=== PATIENT | female | born 1940 | race Caucasian/White ===

== ENCOUNTER → 2019-02-17 | Outpatient (CLI) | payer MEDICARE, OTHER ==
[2019-02-17 10:53] LABS: ABSOLUTE EOSINOPHILS # (AUTO) 0.2 10^3/uL (0.0-0.6); ABSOLUTE LYMPHOCYTES (AUTO) 1.6 10^3/uL (0.5-4.7); ABSOLUTE MONOCYTES (AUTO) 0.4 10^3/uL (0.1-1.4); ABSOLUTE NEUT (AUTO) 4.3 10^3/uL (1.7-8.2); BASOPHILS % (AUTO) 0.6 % (0-2); EOSINOPHILS % (AUTO) 2.6 % (0-6); HEMATOCRIT 36.8 % (36.0-47.0); LYMPHOCYTES % (AUTO) 25.3 % (13-45); MEAN CORPUSCULAR HEMOGLOBIN 28.9 pg (27.0-33.4); MEAN CORPUSCULAR HGB CONC 32.7 g/dL (32.0-36.0); MEAN CORPUSCULAR VOLUME 88 fl (80-97); MONOCYTES % (AUTO) 5.5 % (3-13); PLATELET COUNT 142 10^3/uL (150-450); RED BLOOD COUNT 4.16 10^6/uL (3.72-5.28); RED CELL DISTRIBUTION WIDTH 14.8 % (11.5-14.0); TOTAL CELLS COUNTED % (AUTO) 100 %; WHITE BLOOD COUNT 6.5 10^3/uL (4.0-10.5)
[2019-02-17 11:23] LABS: ALANINE AMINOTRANSFERASE 27 U/L (9-52); ALBUMIN 3.9 g/dL (3.5-5.0); ALKALINE PHOSPHATASE 98 U/L (38-126); ANION GAP 6 (5-19); ASPARTATE AMINO TRANSFERASE 23 U/L (14-36); BILIRUBIN,DIRECT 0.2 mg/dL (0.0-0.4); BILIRUBIN,TOTAL 0.6 mg/dL (0.2-1.3); BLOOD UREA NITROGEN 23 mg/dL (7-20); C-REACTIVE PROTEIN 7.7 mg/L (<10.0); CALCIUM 9.2 mg/dL (8.4-10.2); CARBON DIOXIDE 32 mmol/L (22-30); CHLORIDE 101 mmol/L (98-107); GLUCOSE 97 mg/dL (75-110); SODIUM 139.2 mmol/L (137-145); TOTAL PROTEIN 6.9 g/dL (6.3-8.2)
[2019-02-17 11:43] LABS: ERYTHROCYTE SEDIMENTATION RATE 22 mm/hr (0-30)
--- NOTE | 2019-02-17 14:25 | RADIOLOGY REPORT (SQ) ---
EXAM DESCRIPTION: ANKLE RIGHT COMPLETE COMPLETED DATE/TIME: 02/17/2019 10:48 am REASON FOR STUDY: NON-PRS CHRONIC ULCER OF RIGHT ANKLE W FAT LAYER EXPOSED L97.312 NON-PRS CHRONIC ULCER OF RIGHT ANKLE W FAT LAYER EXP COMPARISON: None. NUMBER OF VIEWS: Three views. TECHNIQUE: AP, lateral, and oblique radiographic images acquired of the right ankle. LIMITATIONS: None. FINDINGS: MINERALIZATION: Decreased. BONES: No acute fracture dislocation. Dysmorphic appearance of the distal fibula possibly related to remote injury. Mild degenerative changes about the ankle. No osseous erosion or sclerosis to sugge st osteomyelitis. JOINTS: No effusions. SOFT TISSUES: Vascular calcifications. Soft tissue swelling about the medial ankle. OTHER: No other significant finding. IMPRESSION: Soft tissue swelling about the medial ankle without evidence of acute bony abnormality. No definitive findings to suggest osteomyelitis. TECHNICAL DOCUMENTATION: JOB ID: [id number] [employer]- All Rights Reserved Reading location - IP/workstation name: [email or web address]
== END ==
LOC: OD 10:24
PROVIDERS: ATTEND Nurse Practitioner Family
DX: L97.312 Non-pressure chronic ulcer of right ankle with fat layer exposed (principal); M79.89 Other specified soft tissue disorders
CPT/HCPCS: 36415; 80053; 85025; 85652; 86140

== ENCOUNTER → 2019-02-22 | Outpatient (CLI) | payer MEDICARE, OTHER ==
--- NOTE | 2019-02-22 12:16 | XCELERA REPORT ---
[address] [address] Lower Extremity Venous Evaluation Procedure: A bilateral duplex scan of the lower extremity veins was performed. The evaluation included responses to compression and other maneuvers with patient in the supine and standing positions to assess venous insufficiency. Right Sided Venous Evaluation Deep venous system evaluatiion shows patent veins with no obstruction or significant reflux identified. Sapheno Femoral junction: no reflux. Femoral vein reflux: no reflux. Greater Saphenous vein, Proximal thigh: reflux: no reflux. Greater Saphenous vein, Distal thigh: reflux: no reflux. Greater Saphenous vein, Proximal below knee: reflux: no reflux. No significant Perforators identified. Left Sided Venous Evaluation Deep venous system evaluatiion shows patent veins with no obstruction or significant reflux identified. Sapheno Femoral junction: no reflux. Femoral vein reflux: no reflux. Greater Saphenous vein, Proximal thigh: reflux: no reflux. Greater Saphenous vein, Distal thigh: reflux: no reflux. Greater Saphenous vein, Proximal below knee: reflux: no reflux. No significant Perforators identified. Interpretation Summary No duplex evidence of DVT or obstruction in the bilateral lower extremities. No deep or superficial reflux identified. Name: RODNEY HART David Age: 78 yrs Gender: Female : 1940 Patient Status: Outpatient Patient Location: Study Date: 02/22/2019 10:37 AM Reason For Study: ULCER OF RIGHT ANKLE Ordering Physician: ADY ALMANZAR Performed By: Shantell Brooks : ADY ALMANZAR > Chucky Hernandez
--- NOTE | 2019-02-22 12:24 | XCELERA REPORT ---
[address] [address] Lower Extremity Arterial Evaluation Name: RODNEY HART Age: 78 yrs Gender: Female : 1940 Patient Status: Outpatient Patient Location: Study Date: 02/22/2019 10:17 AM Procedure: A color flow and duplex scan of the lower extremity arteries was performed bilaterally with velocity and waveform anaylsis. Ankle brachial indicies performed. Reason For Study: ULCER OF RIGHT ANKLE Ordering Physician: ADY ALMANZAR Performed By: Shantell Brooks Measurements and Calculations Right Left VP HR DIVERSITY PSV 151.0 165.0 cm/sec Prox PFA PSV 75.0 71.1 cm/sec Prox SFA PSV 114.1 136.9 cm/sec Mid SFA PSV -134.0 132.7 cm/sec Dist SFA PSV -129.2 -127.8cm/sec Dist Pop A PSV -111.0 81.0 cm/sec Mid MELANIE PSV 140.6 93.6 cm/sec Mid M[employer] ST[employer] REPA[employer]ER PSV 156.4 76.1 cm/sec Joni Pedis PSV 86.4 129.2 cm/sec Right Side Arterial Evaluation Normal velocity and triphasic waveforms noted from the Common Femoral artery to the infrageniculate vessels . Ankle Brachial index 1.2. Left Side Arterial Evaluation Normal velocity and triphasic waveforms noted from the Common Femoral artery to the infrageniculate vessels . Ankle Brachial index 1.1. Interpretation Summary No hemodynamically significant lesions in the bilateral lower extremities, on duplex imaging, at rest. BAM's are normal, suggesting no significant arterial compromise. : ADY ALMANZAR > Chucky Hernandez
== END ==
LOC: SP 10:02
PROVIDERS: ATTEND Nurse Practitioner Family
DX: L97.312 Non-pressure chronic ulcer of right ankle with fat layer exposed (principal)
CPT/HCPCS: 93925; 93970

== ENCOUNTER 2019-10-12 18:29 | Emergency (ER) | payer MEDICARE, OTHER ==
--- NOTE | 2019-10-12 18:47 | ER Document Report ---
ED Medical Screen (RME) - General Chief Complaint: Fall Injury Stated Complaint: FALL/HEAD INJURY,LACERATION Time Seen by Provider: 10/12/19 18:42 Primary Care Provider: CHANTELL BERGERON III, MD [Primary Care Provider] - Follow up as needed Notes: 79-year-old female presents with head injury. Per daughter patient just stood up and fell forward. Daughter states she takes medication for dizziness and did not take her lunchtime dose. Patient denies passing out or having dizziness/chest pain/dyspnea prior to falling. Patient has large hematoma to her forehead and small abrasion to the left eyebrow. Patient also has hematoma to her right medial hand. Radial pulse 2+. I have greeted and performed a rapid initial assessment of this patient. A comprehensive ED assessment and evaluation of the patient, analysis of test results and completion of the medical decision making process with be conducted by additional ED providers. TRAVEL OUTSIDE OF THE [place] IN LAST 30 DAYS: No - Related Data Allergies/Adverse Reactions: No Known Allergies Allergy (Verified 10/12/19 18:42) Physical Exam - Vital signs Vitals: Temp Pulse Resp BP Pulse Ox 97.8 F 84 18 153/99 H 98 10/12/19 18:35 10/12/19 18:35 10/12/19 18:35 10/12/19 18:35 10/12/19 18:35 Course - Vital Signs Vital signs: Temp Pulse Resp BP Pulse Ox 97.8 F 84 18 153/99 H 98 10/12/19 18:35 10/12/19 18:35 10/12/19 18:35 10/12/19 18:35 10/12/19 18:35 Doctor's Discharge - Discharge Referrals: CHANTELL BERGERON III, MD [Primary Care Provider] - Follow up as needed
--- NOTE | 2019-10-12 19:07 | RADIOLOGY REPORT (SQ) ---
EXAM DESCRIPTION: HAND RIGHT 3 VIEWS COMPLETED DATE/TIME: 10/12/2019 6:56 pm REASON FOR STUDY: right hand injury/hematoma, fall COMPARISON: None. NUMBER OF VIEWS: Three views right hand LIMITATIONS: None. FINDINGS: Osteopenic. IP joint osteoarthritis, most notable on the DIP joints of the ring and littl e fingers. No fracture or bone lesion or subluxation or dislocation evident. OTHER: Carpal DJD without gross malalignment. IMPRESSION: Osteopenia and osteoarthritis. No fracture evident. TECHNICAL DOCUMENTATION: JOB ID: [id number] Reading location - IP/workstation name: [email or web address]
--- NOTE | 2019-10-12 19:15 | RADIOLOGY REPORT (SQ) ---
EXAM DESCRIPTION: CT HEAD WITHOUT COMPLETED DATE/TIME: 10/12/2019 7:03 pm REASON FOR STUDY: fall, head injury COMPARISON: 01/13/2014 TECHNIQUE: Axial images acquired through the brain without intravenous contrast. Images reviewed wi th bone, brain and subdural windows. Additional sagittal and coronal reconstructions were generated. Images stored on PACS. All CT scanners at this facility use dose modulation, iterative reconstruction, and/or weight based d osing when appropriate to reduce radiation dose to as low as reasonably achievable (ALARA). [facility]: Dose Right [facility]: CareDose [facility]: Dose Right [facility]: Teradose 4D [facility]: Smart A-Gas RADIATION DOSE: CT Rad equipment meets quality standard of care and radiation dose reduction techniq ues were employed. CTDIvol: 48.5 mGy. DLP: 879 mGy-cm. mGy. LIMITATIONS: None. FINDINGS: VENTRICLES: Normal size and contour. CEREBRUM: No masses. No hemorrhage. No midline shift. No evidence for acute infarction. Normal gra y/white matter differentiation. No areas of low density in the white matter. CEREBELLUM: No masses. No hemorrhage. No alteration of density. No evidence for acute infarction. EXTRAAXIAL SPACES: No fluid collections. No masses. ORBITS AND GLOBE: No intra- or extraconal masses. Normal contour of globe without masses. CALVARIUM: No fracture. PARANASAL SINUSES: No fluid or mucosal thickening. SOFT TISSUES: Right frontal scalp hematoma. OTHER: No other significant finding. IMPRESSION: Right frontal scalp hematoma with no acute intracranial imaging finding. EVIDENCE OF ACUTE STROKE: NO. COMMENT: Quality ID # [id number]: Final reports with documentation of one or more dose reduction techniques (e.g., Automated exposure control, adjustment of the mA and/or kV according to patient size, use of iterative reconstruction technique) TECHNICAL DOCUMENTATION: JOB ID: [id number] 2010 [employer]- All Rights Reserved Reading location - IP/workstation name: [email or web address]
--- NOTE | 2019-10-12 19:23 | RADIOLOGY REPORT (SQ) ---
EXAM DESCRIPTION: CT CERVICAL SPINE WITHOUT COMPLETED DATE/TIME: 10/12/2019 7:03 pm REASON FOR STUDY: fall, head injury COMPARISON: None. TECHNIQUE: Axial images acquired through the cervical spine without intravenous contrast. Images re viewed with lung, soft tissue and bone windows. Reconstructed coronal and sagittal MPR images review ed. Images stored on PACS. All CT scanners at this facility use dose modulation, iterative reconstruction, and/or weight based d osing when appropriate to reduce radiation dose to as low as reasonably achievable (ALARA). [facility]: Dose Right [facility]: CareDose [facility]: Dose Right [facility]: Teradose 4D [facility]: Smart [employer] RADIATION DOSE: CT Rad equipment meets quality standard of care and radiation dose reduction techniq ues were employed. CTDIvol: 21.2 mGy. DLP: 497 mGy-cm. mGy. LIMITATIONS: None. FINDINGS: ALIGNMENT: Minimal anterolisthesis of C4 on C5. MINERALIZATION: Normal. VERTEBRAL BODIES: No fractures or dislocation. DISCS: Slight disc narrowing at C5-6. FACETS, LATERAL MASSES, POSTERIOR ELEMENTS: Hypertrophic facet changes bilaterally, right more than l eft. HARDWARE: None in the spine. VISUALIZED RIBS: No fractures. LUNG APICES AND SOFT TISSUES: No significant or acute findings. OTHER: No other significant finding. IMPRESSION: Mild degenerative disc disease. Minimal anterolisthesis of C4 on C5. Facet arthropathy . TECHNICAL DOCUMENTATION: JOB ID: [id number] Quality ID # [id number]: Final reports with documentation of one or more dose reduction techniques (e.g., Au tomated exposure control, adjustment of the mA and/or kV according to patient size, use of iterative reconstruction technique) 2010 [employer]- All Rights Reserved Reading location - IP/workstation name: [email or web address]
[2019-10-12] MEDS ORDERED: DIPH/PERTUSS(ACELL)/TETANUS VAC/PF 0.5 ML SYR (>=10YO) IM ONE (21:11)
[2019-10-12] MEDS ORDERED: LIDOCAINE 1% INJ-PF (10 MG/ML) 30 ML SDV INJ ONE (21:11)
--- NOTE | 2019-10-12 21:16 | ER Document Report ---
ED General - General Chief Complaint: Fall Stated Complaint: FALL/HEAD INJURY,LACERATION Time Seen by Provider: 10/12/19 18:42 Primary Care Provider: CHANTELL BERGERON III, MD [Primary Care Provider] - Follow up as needed TRAVEL OUTSIDE OF THE [place] IN LAST 30 DAYS: No - HPI Notes: Patient is an 79-year-old female with a history of vertigo who comes in for evaluation after a fall. She got up out of her recliner, had not yet taken her vertigo medicine, and fell to the ground. She did her head. She did not lose consciousness. She denies any neck or back pain. She has some pain in her right proximal hand/wrist. She has pain primarily in her forehead. She rates it a 3 out of 5. It is a soreness. She is not on blood thinners. She is unsure as to when her last tetanus shot was. She sustained a laceration to her left lateral brow. - Related Data Allergies/Adverse Reactions: No Known Allergies Allergy (Verified 10/12/19 18:42) Home Medications: Sertraline 50 mg daily, Neurontin 300 mg 3 times daily, pantoprazole 40 mg daily, atorvastatin 20 mg daily, Lasix 40 mg daily, Klor-Con 20 mEq daily, losartan/HCTZ 100/12.5 mg daily Phenergan 12-1/2 mg as needed Past Medical History - General Information source: Patient - Social History Smoking Status: Never Smoker Family History: Reviewed & Not Pertinent Patient has suicidal ideation: No Patient has homicidal ideation: No - Past Medical History Cardiac Medical History: Reports: Hx Hypercholesterolemia, Hx Hypertension EENT Medical History: Reports: Ears - Vertigo Neurological Medical History: Reports: Other - Neuropathy GI Medical History: Reports: Hx Gastroesophageal Reflux Disease Past Surgical History: Reports: Hx Hysterectomy, Hx Orthopedic Surgery - x3 knee surgeries to both, R arm and shoulder fracture, R ankle fracture Review of Systems - Review of Systems Musculoskeletal: See HPI Neurological/Psychological: See HPI Physical Exam - Vital signs Vitals: Temp Pulse Resp BP Pulse Ox 97.8 F 84 18 153/99 H 98 10/12/19 18:35 10/12/19 18:35 10/12/19 18:35 10/12/19 18:35 10/12/19 18:35 - Notes Notes: This is a very pleasant 79-year-old female who appears her stated age in no acute distress. Has normocephalic. She has a hematoma of the right frontal area, as well as on the left brow area. She has a 1 cm gaping laceration overlying the left lateral brow. No foreign body. Pupils are equal round, active to light. Nares are patent without septal hematoma. Her mucosa is moist. Uvula is midline. Examination of the spine yields no midline tenderness or step-off, no paraspinal musculature tenderness is appreciated. Heart is a regular rhythm, lungs could not station bilaterally. Abdomen soft, nontender, normoactive bowel sounds. Peripheral pulses are equal. No posterior calf tenderness. Patient is awake, alert, oriented x3. Cranial nerves II - XII are grossly intact without focal neurological deficits. Strength is plus 5 out of 5 bilateral upper and lower extremities. Sensation is intact. Reflexes symmetrical. Intact [id number], rapid alternating movements, [id number]. Patient has a small ecchymosis just distal to the radial aspect of the wrist on the right upper extremity. She is full range of motion of the shoulder, elbow, wrist, fingers, thumb. No anatomical snuffbox tenderness. Sensation is intact, radial pulse 2+, capillary fill is brisk. Course - Re-evaluation Re-evalutation: 10/12/19 21:16 Patient presents the emergency department for evaluation. She was evaluated here through triage and had CT scans of the head and neck, as well as plain films of the right wrist. No acute fracture or intracranial bleeding was noted. Patient had her tetanus updated. I will turned attention to her laceration which will be secured with sutures. Patient is stable at this time, we will continue to monitor. 10/12/19 21:54 Wound was closed with sutures, no complications, please see procedure note. Patient tolerated this well. Patient is told to take Tylenol as needed at home for pain. Given wound care instructions. Follow-up with primary care this week, have sutures removed in 5 days. Return to the emergency department worsening or new concerning symptoms of any sort. - Vital Signs Vital signs: Temp Pulse Resp BP Pulse Ox 97.8 F 89 17 147/88 H 98 10/12/19 22:20 10/12/19 22:20 10/12/19 22:20 10/12/19 22:20 03/03/20 22:20 Procedures - Laceration/Wound Repair Left Upper Face Time completed: 21:40 Wound length (cm): 1 Wound's Depth, Shape: Superficial, Linear Laceration pre-procedure: Sterile PPE donned, Sterile drapes applied, Shur-Clens applied Anesthetic type: 1% Lidocaine Volume Anesthetic (mLs): 3 Wound explored: Clean, No foreign body removed Irrigated w/ Saline (mLs): 15 Wound Repaired With: Sutures Suture Size/Type: 5:0, Prolene Number Deep Layer Sutures: 2 Post-procedure NV exam normal: Yes Complications: No Adult Head Front/Back picture: 1 - 1 cm laceration with medial skin avulsion Discharge - Discharge Clinical Impression: Contusion of right hand Qualifiers: Encounter type: initial encounter Qualified Code(s): S60.221A - Contusion of right hand, initial encounter Hematoma of frontal scalp Qualifiers: Encounter type: initial encounter Qualified Code(s): S00.03XA - Contusion of scalp, initial encounter Facial laceration Qualifiers: Encounter type: initial encounter Qualified Code(s): S01.81XA - Laceration without foreign body of other part of head, initial encounter Condition: Stable Disposition: HOME, SELF-CARE Instructions: Antibiotic Ointment Protection ([facility]), Head Injury Precautions ([facility]), Laceration Care ([facility]), Soap Cleansing ([facility]), Tetanus Immunization Given ([facility]) Additional Instructions: Rest, stay well-hydrated. Keep wound clean with soap and water. Watch for signs of infection. Have sutures removed in 5 days. Follow-up with your primary care this week. Return to the emergency department for worsening or new concerning symptoms of any sort. Referrals: CHANTELL BERGERON III, MD [Primary Care Provider] - Follow up as needed
[2019-10-12 22:52] VITALS: BP 147/88
== END 2019-10-12 22:25 | disposition home or self-care (01) ==
LOC: ER 18:29
DX: S01.112A Laceration without foreign body of left eyelid and periocular area, initial encounter (principal); S60.221A Contusion of right hand, initial encounter; M79.641 Pain in right hand; M25.531 Pain in right wrist; R51 Headache; W19.XXXA Unspecified fall, initial encounter; Y93.89 Activity, other specified; E78.00 Pure hypercholesterolemia, unspecified; I10 Essential (primary) hypertension; R42 Dizziness and giddiness; Z79.899 Other long term (current) drug therapy; Z23 Encounter for immunization
CPT/HCPCS: 99283; 90471; 73130; 70450; 72125; 90715; 12011; J3490

== ENCOUNTER → 2020-07-18 | Outpatient (CLI) | payer MEDICARE, OTHER ==
--- NOTE | 2020-07-18 14:08 | RADIOLOGY REPORT (SQ) ---
EXAM DESCRIPTION: ARTERIAL LOWER EXTREM BILAT IMAGES COMPLETED DATE/TIME: 07/18/2020 12:46 pm REASON FOR STUDY: RLE ULCER L97.312 NON-PRS CHRONIC ULCER OF RIGHT ANKLE W FAT LAYER EXP COMPARISON: 02/22/2019. TECHNIQUE: Dynamic and static jaeger scale and color images acquired of the lower extremity arteries. Additional selected spectral images recorded. LIMITATIONS: None. FINDINGS: RIGHT LEG: INFLOW ARTERIES: Normal, no obstruction evident. FEMORAL ARTERIES:Multiphasic waveforms. Normal, no velocity elevation to suggest focal stenosis. Norm al color Doppler evaluation. No aneurysm. POPLITEAL ARTERY:Multiphasic waveforms. Normal, no velocity elevation to suggest focal stenosis. Norm al color Doppler evaluation. No aneurysm. PATENT TIBIOPERONEAL TRUNK AND 3 VESSEL RUNOFF: Yes, normal vessels. OTHER: No other significant finding. LEFT LEG: INFLOW ARTERIES: Normal, no obstruction evident. FEMORAL ARTERIES:Multiphasic waveforms. Normal, no velocity elevation to suggest focal stenosis. Norm al color Doppler evaluation. No aneurysm. POPLITEAL ARTERY:Multiphasic waveforms. Normal, no velocity elevation to suggest focal stenosis. Norm al color Doppler evaluation. No aneurysm. PATENT TIBIOPERONEAL TRUNK AND 3 VESSEL RUNOFF: Yes, normal vessels. OTHER: No other significant finding. IMPRESSION: NORMAL BILATERAL LOWER EXTREMITY ARTERIAL DOPPLER. TECHNICAL DOCUMENTATION: JOB ID: [id number] 2010 [employer]- All Rights Reserved Reading location - IP/workstation name: [email or web address]
== END ==
LOC: RAD 10:29
PROVIDERS: ATTEND Nurse Practitioner Family
DX: L97.312 Non-pressure chronic ulcer of right ankle with fat layer exposed (principal)
CPT/HCPCS: 93925